=== PATIENT | male | born 1950 | race African-American/Black ===

== ENCOUNTER 2017-07-05 12:39 | Observation (INO) | payer OTHER ==
[~2017-07-05] VITALS: Ht 170.2 cm; Wt 120.5 kg
--- NOTE | ~2017-07-05 | HEMODYNAMI ---
PATIENT:LOUISE LEE MEDICAL RECORD: [id number] : 54 LOCATION:[facility].211 ADMISSION DATE: 07/05/17 Generatedon:07/07/201715:52 Patient name: LOUISE LEE Patient #: [id number] SSN: : Date of study: 07/07/2017 Page: Of Hemodynamic Procedure Report Patient Data Patient Demographics Procedure consent was obtained First Name: LOUISE Gender: Male Last Name: JESUS : 1950 Middle Initial: L Age: 66 year(s) Patient #: [id number] Race: Black Additional ID: [id number] Contact details [address]: [address] [place] [address] State: [place] City: [place] Zip code: [address] Admission Admission Data Admission Date: 07/05/2017 Admission Time: 15:52 Admit Source: Other Room #: D.2117 Procedure Procedure Types Cath Procedure Diagnostic Procedure LHC LHC w/Coronaries Procedure Description Procedure Date Procedure Date: 07/07/2017 Procedure Start Time: 15:28 Procedure End Time: 15:51 Procedure Staff Name Function Luis Rinaldi MD Performing Physician Abdirahman Medina RT Monitor Porter Roman RT Scrub Godwin Gaines RN Nurse Procedure Data Cath Procedure Fluoroscopy Diagnostic fluoroscopy Total fluoroscopy Time: 5 time: 5 min min Diagnostic fluoroscopy Total fluoroscopy dose: dose: 1028 mGy 1028 mGy Contrast Material Contrast Material Type Amount (ml) Isovue 300 81 Entry Location Entry Primary Successful Side Size Upsize Upsize Entry Closure Succes sful Closure Location (Fr) 1 (Fr) 2 (Fr) Remarks Device Remarks Femoral Right 5 Fr Exoseal artery Estimated blood loss: 10 ml Diagnostic catheters Device Type Used For End Catheter Placement MULTIPACK JL 4.0 5Fr Procedure catheter DIAGNOSTIC JL 5 5Fr Procedure catheter ([id number]) MULTIPACK 3DRC 5Fr Procedure catheter DIAGNOSTIC AR MOD 5Fr Procedure Catheter ([id number]) DIAGNOSTIC AR 2 MOD 5 Fr Procedure catheter ([id number]) MULTIPACK Pigtail 5 Fr Procedure catheter Procedure Complications No complications Procedure Medications Medication Administration Route Dosage 0.9% NaCl I.V. 100 ml/hr Oxygen etCO2 Nasal cannula 2 l/min Heparin Flush Bag added to field 2 bags (1000units/500ml NS) Lidocaine 2% added to field 20 Radial Cocktail added to field 1 syringe (Verapomil 2mg/Nitro 400mcg/Heparin 1500units) Versed I.V. 1 mg Fentanyl I.V. 50 mcg Fentanyl I.V. 50 mcg Versed I.V. 1 mg Hemodynamics Rest Heart Rate: 67 (bpm) Pressure Samples Time Site Value (mmHg) Purpose Heart Use Rate(bpm) 15:45 LV 131/1,13 Snapshot 73 15:45 AO 132/80(101) Pullback 68 15:45 LV 134/2,16 Pullback 68 Gradients Valve Time Site 1 Site 2 Mean SEP/DFP Peak To Heart Use (mmHg) (sec/min) Peak Rate (mmHg) (bpm) Aortic 15:45 LV AO 10 17 2 68 134/2,16 132/80(101) Calculations Valve P-P Mean Valve Index Valve Source Name Gradient Area Flow (cm2) Aortic 2 10 2 10 Snapshots Pre Cath Intra NCS Post Cath Vital Signs Time Heart Resp SPO2 etCO2 NIBP (mmHg) Rhythm Pain Sedation Rate (ipm) (%) (mmHg) Status Level (bpm) 15:22:50 68 19 95 27.7 142/98(117) NSR 0 (11) 10(A) , No pain 15:28:14 65 19 95 30 134/91(108) NSR 0 (11) 10(A) , No pain 15:32:54 72 18 92 32.3 139/93(114) NSR 0 (11) 10(A) , No pain 15:37:37 66 17 93 32.3 130/88(107) NSR 0 (11) 10(A) , No pain 15:42:17 71 18 93 32.3 129/85(110) NSR 0 (11) 9(A) , No pain 15:46:56 68 17 94 30.8 129/89(122) NSR 0 (11) 9(A) , No pain Medications Time Medication Route Dose Verified Delivered Reason Notes E ffectiveness by by 15:20:46 0.9% NaCl I.V. 100 Godwin Godwin Per ml/hr Eder Gaines physician RN RN 15:20:59 Oxygen etCO2 2 l/min Godwin Godwin Per Nasal Eder Gaines physician cannula RN RN 15:21:16 Heparin Flush added 2 bags Godwin Godwin used for Bag to Lorigan Lorigan procedure (1000units/500ml field RN RN NS) 15:21:30 Lidocaine 2% added 20ml Godwin Godwin for local to vial Lorigan Lorigan anesthetic field RN RN 15:21:50 Radial Cocktail added 1 Godwin Godwin used for (Verapomil to syringe Lorigan Lorigan procedure 2mg/Nitro field RN RN 400mcg/Heparin 1500units) 15:27:27 Versed I.V. 1 mg Godwin Godwin for Lorigan Lorigan sedation RN RN 15:27:38 Fentanyl I.V. 50 mcg Godwin Godwin for Lorigan Lorigan sedation RN RN 15:32:09 Fentanyl I.V. 50 mcg Godwin Godwin for Lorigan Lorigan sedation RN RN 15:32:17 Versed I.V. 1 mg Godwin Godwin for Lorigan Lorigan sedation RN lead section supervisor Log Time Note 14:50:20 Informed consent obtained and on chart 14:50:23 Admit Source: Other 14:50:41 Porter Roman RT(R) sent for patient. Start room use. 14:50:41 Time tracking: Regular hours (M-F 7:00 - 5:00) 14:50:45 Plan of Care:Hemodynamics will remain stable., Cardiac rhythm will remain stable., Comfort level will be maintained., Respiratory function will remain adequate., Patient/ family verbilizes understanding of procedure., Procedure tolerated without complication., Recovers from procedure without complications.. 14:51:00 H&P Date Dictated: 07/05/2017 Within 30 days and on chart.. 15:08:29 Patient received from PCU to CCL 1 Alert and oriented. Tansferred to table in Supine position. 15:08:30 Warm blankets applied, and nico hugger turned on for patient comfort. 15:08:31 Correct patient and procedure confirmed by team. 15:08:32 ECG and BP/O2 sat monitors applied to patient. 15:20:46 0.9% NaCl 100 ml/hr I.V. was administered by Godwin Gaines RN; Per physician; 15:20:59 Oxygen 2 l/min etCO2 Nasal cannula was administered by Godwin Gaines RN; Per physician; 15:21:16 Heparin Flush Bag (1000units/500ml NS) 2 bags added to field was administered by Godwin Gaines RN; used for procedure; 15::30 Lidocaine 2% 20ml vial added to field was administered by Godwin Gaines RN; for local anesthetic; 15:21:50 Radial Cocktail (Verapomil 2mg/Nitro 400mcg/Heparin 1500units) 1 syringe added to field was administered by Godwin Gaines RN; used for procedure; 15::58 Vital chart was started 15:22:20 Baseline sample Acquired. 15::24 Rhythm: sinus rhythm 15:: Full Disclosure recording started 15:: Pre-procedure instructions explained to patient. 15::27 Pre-op teaching completed and patient verbalized understanding. 15:22:29 Family in patients room. 15:22:32 Patient NPO since Midnight. 15:22:34 Is the patient allergic to Iodine/contrast media? No. 15:22:35 Is patient on blood thinner?No 15:22:37 Patient diabetic? No. 15:22:40 Previous problem with sedation/anesthesia? No ? 15:22:41 Snore? No 15:22:42 Sleep apnea? No 15:22:43 Deviated septum? No 15:22:44 Opens mouth fully? Yes 15:22:45 Sticks out tongue? Yes 15:22:51 Airway obstruction? No ? 15:22:53 Dentures? No ? 15:22:57 Pre procedure: right dorsailis pedis pulse 1+ Palpable, but thready & weak; easily obliterated 15:23:00 Modified Donal's test Ulnar < 7 seconds 15:23:02 Patient pain scale 0/10 ?. 15:23:05 IV patent on arrival in left forearm with 0.9% NaCl at [facility]. 15:23:07 Lab results completed and on chart. 15:23:11 Right Radial & Right Groin area was prepped with chlora-prep and draped in sterile fashion 15:23:14 Alarms reviewed by R. N. 15:23:14 Sharps counted by scrub and verified by R.N. 15:23:18 Use device set Radial Dx or PCI 15:23:21 Tegaderm 4 x 4 (1626W) opened to sterile field. 15:23:22 ACIST Manifold (24561) opened to sterile field. 15:23:23 ACIST Hand Control (24441) opened to sterile field. 15:23:24 ACIST Syringe (86177) opened to sterile field. 15:23:24 Medline Cath Pack ([id number]) opened to sterile field. 15:23:25 Bag Decanter (2002S) opened to sterile field. 15:23:25 DIAGNOSTIC WIRE .035 260cm J wire (184938) opened to sterile field. 15:23:26 MBrace Wrist Support ([id number]) opened to sterile field. 15:25: --------ALL STOP TIME OUT------ 15:25:02 Final Timeout: patient, procedure, and site verified with staff and physician. All members of the team are in agreement. 15:25:05 Right Radial & Right Groin site verified by team. 15:25:08 Physical assessment completed. ASA score P 2 - A patient with mild systemic disease as per Luis Rinaldi MD. 15:25:11 Sedation plan: IV Moderate Sedation Medication:Versed, Fentanyl 15:27:27 Versed 1 mg I.V. was administered by Godwin Gaines RN; for sedation; 15:27:38 Fentanyl 50 mcg I.V. was administered by Godwin Gaines RN; for sedation; 15:28:15 Procedure started. 15:28:20 Local anesthetic to right radial artery with Lidocaine 2% by Luis Rinaldi MD.INITIAL ACCESS ONLY 15:30:24 Unable to advance wire, moving to femoral approach. 15:30:32 Local anesthetic to right femoral artery with Lidocaine 2% by Luis Rinaldi MD.ADDITIONAL ACCESS 15:32:09 Fentanyl 50 mcg I.V. was administered by Godwin Gaines RN; for sedation; 15:32:17 Versed 1 mg I.V. was administered by Godwin Gaines RN; for sedation; 15:32:27 Use device set Multipack Set 15:32:30 DIAGNOSTIC Multipack 5Fr catheter set ([id number]) opened to sterile field. 15:32:48 SHEATH 5Fr Prelude ([id number]) opened to sterile field. 15:33:22 A 5 Fr sheath was inserted into the Right Femoral artery 15:33:55 A MULTIPACK JL 4.0 5Fr catheter was advanced over the wire and used for Procedure. 15:34:27 Catheter removed. unable to cannulate vessel. 15:35:22 A DIAGNOSTIC JL 5 5Fr catheter ([id number]) was advanced over the wire and used for Procedure. 15:36:46 LCA angiography performed. 15:37:06 Catheter exchanged over wire. 15:37:36 A MULTIPACK 3DRC 5Fr catheter was advanced over the wire and used for Procedure. 15:39:04 Catheter removed. unable to cannulate vessel. 15:39:35 A DIAGNOSTIC AR MOD 5Fr Catheter ([id number]) was advanced over the wire and used for Procedure. 15:41:53 Unable to visualize RCA well enough. Catheter removed over the wire. 15:42:13 A DIAGNOSTIC AR 2 MOD 5 Fr catheter ([id number]) was advanced over the wire and used for Procedure. 15:43:00 RCA angiography performed. 15:43:33 Catheter exchanged over wire. 15:43:56 A MULTIPACK Pigtail 5 Fr catheter was advanced over the wire and used for Procedure. 15:45:08 LV angiography performed. 15:45:10 LV gram done using MORAES 15:45:21 EF : 50 % 15:45:23 LV hemodynamics recorded. 15:45:47 Injector settings: Ml/sec: 10, Volume: 20, 15:45:52 Catheter removed. 15:46:04 EXOSEAL 5Fr (EX500) opened to sterile field. 15:46:15 Sheath removed intact; hemostasis achieved with Exoseal to the Right Femoral artery. 15:46:22 Procedure ended.(Physican Out) 15:48:07 Fluoroscopy time 05.00 minutes. 15:48:11 Flurop Dose total: 1028 15:48:11 Fluoroscopy dose: 1028 mGy 15:48:19 Contrast amount:Isovue 300 81ml. 15:48:20 Sharps counted by scrub and verified by R.N. 15:48:22 Insertion/operative site no bleeding no hematoma. 15:48:27 Post-op/insertion site Right Femoral artery dressed using a 4 x 4 and Tegaderm. 15:48:28 Post Procedure Pulses reassessed and unchanged 15:48:31 Post-procedure physical assessment completed. ASA score P 2 - A patient with mild systemic disease as per Luis Rinaldi MD. 15:48:34 Post procedure rhythm: unchanged. 15:48:38 Estimated blood loss: 10 ml 15:48:41 Post procedure instruction explained to patient.Patient verbalizes understanding. 15:48:42 Patient needs reinforcement of post procedure teaching. 15:48:48 Procedure and supply charges have been captured, reviewed, submitted and are correct. 15:48:51 Procedure Complication : No complications 15:50:07 Vital chart was stopped 15:50:08 See physician's report for complete and final results. 15:50:10 Report given to PCU. 15:50:21 Patient transfered to PCU with Bed. 15:51:52 Procedure ended. 15:51:52 Full Disclosure recording stopped 15:51:57 End room use (Document Last) Device Usage Item Name Manufacture Quantity Catalog Hospital Part Current Minima l Lot# / Number Charge Number Stock Stock Serial# Code Tegaderm 4 x 3M 1 1626W 932204 689220 029814 5 4 (1626W) ACIST Acist 1 71157 248401 889568 409858 5 Manifold Medical (49920) Systems Inc ACIST Hand Acist 1 69727 208222 190614 092674 5 Control Medical (64873) Systems Inc ACIST Acist 1 95095 855339 724236 994111 20 Syringe Medical (44445) Systems Inc Medline Cath Cardinal 1 [id number] 056137 16329 317801 5 Pack Health ([id number]) Bag Decanter Microtek 1 2001S 502794 21064 596422 5 (2001S) Medical Inc. DIAGNOSTIC St Mike 1 632044 153030 412543 455874 30 WIRE .035 260cm J wire (421864) MBrace Wrist Advanced 1 140-0250-00 999953 66901 632791 5 Support Vascular (129496190) Dynamics DIAGNOSTIC Cardinal 1 AZ7089 842396 47381 859901 30 Multipack Health 5Fr catheter set (LR3513) SHEATH 5Fr Merit 1 [id number] 755507 905909 114233 5 Prelude Medical ([id number]) MULTIPACK JL Cardinal 1 131866 5 4.0 5Fr Health catheter DIAGNOSTIC Cardinal 1 564694N 891392 936946 545018 5 JL 5 5Fr Health catheter (721379M) MULTIPACK Cardinal 1 623641 5 3DRC 5Fr Health catheter DIAGNOSTIC Cardinal 1 117897G 466375 572341 323079 15 AR MOD 5Fr Health Catheter (762652H) DIAGNOSTIC Cardinal 1 [id number] 555120 312618 428021 20 AR 2 MOD 5 Health Fr catheter (510047V) MULTIPACK Cardinal 1 773734 5 Pigtail 5 Fr Health catheter EXOSEAL 5Fr Cardinal 1 EX500 495014 306664 814202 10 (EX500) Health Signature Audit [employer] Stage Time Signature Unsigned Intra-Procedure 07/07/2017 Abdirahman Medina 3:52:16 PM RT(R) Signatures Monitor : Abdirahman Medina RT Signature : Date : Time : [address] [address]
[2017-07-05 13:21] LABS: BASOPHILS 0.6 % (0-2); HEMATOCRIT 47.9 % (42.0-54.0); HEMOGLOBIN 16.8 g/dL (13.5-17.5); LYMPHOCYTES 30.8 % (15-50); MCHC 35.1 g/dL (31.0-37.0); MCV 91.2 fL (80.0-100.0); MEAN PLATELET VOLUME 12.6 fL (7.4-10.4); NEUTROPHILS 54.6 % (40-80); PLATELET COUNT 128 10x3/uL (130-400); RBC 5.25 10x6/uL (4.20-6.10); RDW 13.6 % (11.5-14.5)
[2017-07-05 13:43] LABS: ALBUMIN 3.3 g/dL (3.4-5.0); ALKALINE PHOSPHATASE 71 U/L (46-116); ALT (SGPT) 43 U/L (10-68); BILIRUBIN - TOTAL 0.55 mg/dL (0.2-1.3); CALC OSMOLALITY 285 mosm/kg (275-300); CALCIUM 9.5 mg/dL (8.5-10.1); CARBON DIOXIDE 29.8 mmol/L (21.0-32.0); CHLORIDE - SERUM 99 mmol/L (98-107); CREATININE - SERUM 2.7 mg/dL (0.6-1.3); GLUCOSE 132 mg/dL (74-106); PROTEIN - SERUM 7.9 g/dL (6.4-8.2); SODIUM 138 mmol/L (136-145); UREA NITROGEN 35 mg/dL (7-18); eGFR NON AFRICAN AMERICAN 25 mL/min (90-120)
[2017-07-05 13:55] LABS: CKMB 3.9 U/L (0.0-3.6); CREATINE KINASE 612 UL (21-232); TROPONIN-I 0.035 ng/mL (0.000-0.060)
[2017-07-05 17:00] LABS: CKMB 3.7 U/L (0.0-3.6); CREATINE KINASE 580 UL (21-232)
[2017-07-05 17:20] VITALS: BP 138/94; BMI 42.4
[2017-07-05] MEDS ORDERED: ULORIC80 MG PO (17:38)
[2017-07-05] MEDS ORDERED: METOLAZONE5 MG PO (17:38)
[2017-07-05] MEDS ORDERED: K-DUR20 MEQ PO (17:38)
[2017-07-05] MEDS ORDERED: NORVASC10 MG PO (17:39)
[2017-07-05] MEDS ORDERED: ALDACTONE25 MG PO (17:39)
[2017-07-05] MEDS ORDERED: ISOPTO CARPINE15 M1 EACH EYE (17:40)
[2017-07-05] MEDS ORDERED: APRACLONIDINE 0.5% EACH EYE (17:41)
[2017-07-05] MEDS ORDERED: XALATAN 0.0052.5 ML EACH EYE (17:46)
[2017-07-05 20:18] VITALS: BP 124/79
[2017-07-05 23:09] LABS: CKMB 2.7 U/L (0.0-3.6); CREATINE KINASE 510 UL (21-232); TROPONIN-I 0.035 ng/mL (0.000-0.060)
[2017-07-06 00:39] VITALS: BP 116/72
[2017-07-06 01:41] LABS: CREATININE - URINE 106.2 mg/dL (30-125); PRO/CRE RATIO URINE 0.3 mg/g; PROTEIN - URINE 34.9 mg/dL (0.0-11.9)
[2017-07-06 02:08] LABS: APPEARANCE CLEAR (CLEAR); BILIRUBIN NEGATIVE (NEGATIVE); COLOR YELLOW (YELLOW); GLUCOSE NEGATIVE (NEGATIVE); KETONE NEGATIVE (NEGATIVE); NITRITE NEGATIVE (NEGATIVE); PROTEIN 2+ mg/dL (NEGATIVE); SPECIFIC GRAVITY 1.015 (1.005-1.020); UROBILINOGEN NORMAL (NORMAL)
[2017-07-06 02:09] LABS: BACTERIA FEW /hpf (NONE SEEN); EPITHELIAL CELLS 0-5 /hpf (0-5); RED CELLS - URINE 0-5 /hpf (0-5); WHITE CELLS - URINE 0-5 /hpf (0-5)
[2017-07-06 05:13] LABS: BASOPHILS 0.4 % (0-2); EOSINOPHILS 6.5 % (0-7); HEMOGLOBIN 15.5 g/dL (13.5-17.5); IMMATURE GRANULOCYTES 0.1 % (0-5); LYMPHOCYTES 29.2 % (15-50); MCH 32.1 pg (26.0-34.0); MCHC 35.2 g/dL (31.0-37.0); MCV 91.1 fL (80.0-100.0); MEAN PLATELET VOLUME 13.2 fL (7.4-10.4); MONOCYTES 7.1 % (2-11); NEUTROPHILS 56.7 % (40-80); PLATELET COUNT 122 10x3/uL (130-400); RBC 4.83 10x6/uL (4.20-6.10); RDW 13.8 % (11.5-14.5); WBC 7.2 10x3/uL (4.8-10.8)
[2017-07-06 05:43] LABS: CALC OSMOLALITY 283 mosm/kg (275-300); CALCIUM 8.9 mg/dL (8.5-10.1); CARBON DIOXIDE 29.3 mmol/L (21.0-32.0); CHLORIDE - SERUM 99 mmol/L (98-107); CKMB 1.9 U/L (0.0-3.6); CREATINE KINASE 465 UL (21-232); CREATININE - SERUM 2.5 mg/dL (0.6-1.3); GLUCOSE 135 mg/dL (74-106); MAGNESIUM - SERUM 1.3 mg/dL (1.8-2.4); PHOSPHOROUS 3.6 mg/dL (2.5-4.9); SODIUM 137 mmol/L (136-145); TROPONIN-I 0.042 ng/mL (0.000-0.060); UREA NITROGEN 36 mg/dL (7-18); URIC ACID 5.9 mg/dL (2.6-7.2); eGFR NON AFRICAN AMERICAN 28 mL/min (90-120)
[2017-07-06 05:53] LABS: POTASSIUM - SERUM 2.7 mmol/L (3.5-5.1)
[2017-07-06 06:11] VITALS: BP 115/84
[2017-07-06 08:17] VITALS: BP 122/78
[2017-07-06 11:43] VITALS: BP 140/96
[2017-07-06 14:29] VITALS: Ht 170.2 cm; Wt 120.5 kg
[2017-07-06 15:36] VITALS: BP 124/80
[2017-07-06 20:47] VITALS: BP 136/86
[2017-07-07] VITALS: BP 121/78
[2017-07-07 05:08] VITALS: BP 138/86
[2017-07-07 07:05] LABS: MAGNESIUM - SERUM 1.6 mg/dL (1.8-2.4)
[2017-07-07 07:07] LABS: PHOSPHOROUS 2.4 mg/dL (2.5-4.9)
[2017-07-07 08:21] VITALS: BP 131/81
[2017-07-07 09:03] LABS: ANION GAP 11.7 mmol/L (8-16); CALCIUM 9.2 mg/dL (8.5-10.1); CARBON DIOXIDE 27.3 mmol/L (21.0-32.0); CREATININE - SERUM 2.2 mg/dL (0.6-1.3)
[2017-07-07 11:37] VITALS: BP 130/91
== END 2017-07-07 18:56 | disposition home or self-care (01) ==
LOC: D.ER 12:39 → OBSVTIME 15:52 → D.M2 15:52 → D.EDHOLD 15:52 → D.M2 16:05 → D.SDCHOLD 07-07 16:00 → D.M2 07-07 16:06
PROVIDERS: Family Medicine; Internal Medicine Cardiovascular Disease; Internal Medicine Nephrology
DX: R07.89 Other chest pain (principal); I12.9 Hypertensive chronic kidney disease with stage 1 through stage 4 chronic kidney disease, or unspecified chronic kidney disease; N18.4 Chronic kidney disease, stage 4 (severe); E87.6 Hypokalemia; Z86.73 Personal history of transient ischemic attack (TIA), and cerebral infarction without residual deficits; E83.42 Hypomagnesemia

== ENCOUNTER 2017-12-18 14:02 | Emergency (ER) | payer OTHER ==
[~2017-12-18] VITALS: Ht 170.2 cm; Wt 75.0 kg
[~2017-12-18 14:02] MED LIST: ALDACTONE25 MG PO; APRACLONIDINE 0.5% EACH EYE; ISOPTO CARPINE15 M1 EACH EYE; K-DUR20 MEQ PO; METOLAZONE5 MG PO; NORVASC10 MG PO; ULORIC80 MG PO; XALATAN 0.0052.5 ML EACH EYE
[2017-12-18 14:14] VITALS: Ht 170.2 cm; Wt 75.0 kg
[2017-12-18 14:43] LABS: BASOPHILS 0.3 % (0-2); EOSINOPHILS 2.8 % (0-7); HEMATOCRIT 49.3 % (42.0-54.0); HEMOGLOBIN 17.1 g/dL (13.5-17.5); IMMATURE GRANULOCYTES 0.1 % (0-5); LYMPHOCYTES 31.2 % (15-50); MCH 32.5 pg (26.0-34.0); MCHC 34.7 g/dL (31.0-37.0); MCV 93.7 fL (80.0-100.0); MEAN PLATELET VOLUME 12.7 fL (7.4-10.4); MONOCYTES 7.7 % (2-11); NEUTROPHILS 57.9 % (40-80); PLATELET COUNT 137 10x3/uL (130-400); RBC 5.26 10x6/uL (4.20-6.10); RDW 13.9 % (11.5-14.5); WBC 7.3 10x3/uL (4.8-10.8)
[2017-12-18 14:53] LABS: APTT 24.4 SECONDS (22.8-39.4); INR 1.09 (0.85-1.17); PROTIME 13.7 SECONDS (11.6-15.0)
[2017-12-18 15:02] LABS: ALBUMIN 3.4 g/dL (3.4-5.0); ANION GAP 13.9 mmol/L (8-16); BILIRUBIN - TOTAL 0.66 mg/dL (0.2-1.3); CARBON DIOXIDE 29.7 mmol/L (21.0-32.0); CREATININE - SERUM 2.2 mg/dL (0.6-1.3); POTASSIUM - SERUM 3.6 mmol/L (3.5-5.1); PROTEIN - SERUM 8.1 g/dL (6.4-8.2)
[2017-12-18] MEDS ORDERED: FLAGYL500 MG PO (16:36)
[2017-12-18] MEDS ORDERED: CIPRO500 MG PO (16:36)
[2017-12-18] MEDS ORDERED: HYDROCODON-ACE1 EAC7 PO (16:36)
[2017-12-18 17:13] VITALS: BP 138/101
== END 2017-12-18 17:13 | disposition home or self-care (01) ==
LOC: D.ER 14:02
PROVIDERS: Emergency Medicine
DX: K57.32 Diverticulitis of large intestine without perforation or abscess without bleeding (principal); Z86.73 Personal history of transient ischemic attack (TIA), and cerebral infarction without residual deficits; H40.9 Unspecified glaucoma

== ENCOUNTER 2020-06-11 18:29 | Inpatient (IN) | payer OTHER ==
[2020-06-11] VITALS (8 sets, daily range): BP systolic 92–113; BP diastolic 58–83
[~2020-06-11] VITALS: Ht 170.2 cm; Wt 117.7 kg
[~2020-06-11 18:29] MED LIST changes: +CIPRO500 MG PO; +FLAGYL500 MG PO; +HYDROCODON-ACE1 EAC7 PO; -XALATAN 0.0052.5 ML EACH EYE; +XALATAN 0.0052.5 ML RIGHT EYE
[2020-06-11 19:10] LABS: BASOPHILS 0.2 % (0-2); EOSINOPHILS 1.3 % (0-7); HEMATOCRIT 49.4 % (42.0-54.0); HEMOGLOBIN 17.2 g/dL (13.5-17.5); IMMATURE GRANULOCYTES 0.2 % (0-5); LYMPHOCYTES 21.6 % (15-50); MCH 32.2 pg (26.0-34.0); MCHC 34.8 g/dL (31.0-37.0); MCV 92.5 fL (80.0-100.0); MEAN PLATELET VOLUME 13.3 fL (7.4-10.4); MONOCYTES 9.7 % (2-11); NEUTROPHIL ABS# 6.53 10x3/uL (1.78-5.38); RBC 5.34 10x6/uL (4.20-6.10); RDW 13.8 % (11.5-14.5); WBC 9.7 10x3/uL (4.8-10.8)
[2020-06-11 19:11] LABS: PLATELET COUNT 167 10x3/uL (130-400)
[2020-06-11 19:24] LABS: ANION GAP 12.9 mmol/L (8-16); CALCIUM 9.7 mg/dL (8.5-10.1); CARBON DIOXIDE 25.2 mmol/L (21.0-32.0); CREATININE - SERUM 2.6 mg/dL (0.6-1.3); POTASSIUM - SERUM 4.1 mmol/L (3.5-5.1)
[2020-06-11 19:34] LABS: ALBUMIN 3.1 g/dL (3.4-5.0); BILIRUBIN - TOTAL 0.88 mg/dL (0.2-1.3); PROTEIN - SERUM 7.1 g/dL (6.4-8.2); TROPONIN-I 0.034 ng/mL (0.000-0.060)
[2020-06-11 20:00] LABS: BILIRUBIN NEGATIVE (NEGATIVE); KETONE NEGATIVE (NEGATIVE); NITRITE NEGATIVE (NEGATIVE); UROBILINOGEN NORMAL mg/dL (< 2)
--- NOTE | 2020-06-12 01:00 | NUR ---
PT ARRIVED TO FLOOR VIA WHEELCHAIR. AMBULATED TO BED. AOX4, STATES NO PAIN AT THIS TIME. STATES THE PAIN COMES AND GOES AND IS CRAMPING IN THE EPIGASTRIC AREA. STATES HE HAS BEEN HAVING DAILY BOWEL MOVEMENTS NORMAL BUT HAVE BEEN DARK. INFORMED PT WE NEED STOOL SAMPLE, VERBALIZED UNDERSTANDING. PLACED SCDS ON BILAT AND EDUCATED IMPORTANCE AND EDUCATED ABOUT INCENTIVE SPIROMETER AND PT DEMONSTRATED CORRECT WAY TO USE. INFORMED PT HE IS NPO UNTIL SURGEON COMES TO SPEAK WITH HIM, VERBALIZED UNDERSTANDING. DENIES OTHER NEEDS AT THIS TIME. CL IN REACH, SRX2, BED LOWEST POSITION
[2020-06-12] MEDS ORDERED: DORZOLAMIDE-TI1 EACH RIGHT EYE (01:26)
[2020-06-12] MEDS ORDERED: LISINOPRIL5 MG PO (01:27)
[2020-06-12] MEDS ORDERED: ZYLOPRIM100 MG PO (01:27)
[2020-06-12 01:30] VITALS: BMI 40.6
[2020-06-12 01:49] VITALS: BP 100/75
[2020-06-12 06:30] VITALS: BP 80/57
[2020-06-12 06:54] LABS: APTT 29.9 SECONDS (22.8-39.4); INR 1.2 (0.85-1.17); PROTIME 14.1 SECONDS (11.6-15.0)
--- NOTE | 2020-06-12 07:00 | NUR ---
ASSESSMENT PER FLOW SHEET. PATIENT IS WITHOUT DISTRESS.HAS HAD HEPI CLENS BATH. PATIENT NPO FOR POSSIBLE PROCEDURE.CALL LIGHT IN REACH.
[2020-06-12 07:02] LABS: BASOPHILS 0.2 % (0-2); EOSINOPHILS 1.5 % (0-7); HEMATOCRIT 47.8 % (42.0-54.0); HEMOGLOBIN 16.4 g/dL (13.5-17.5); IMMATURE GRANULOCYTES 0.2 % (0-5); LYMPHOCYTE ABS# 1.97 10x3/uL (1.32-3.57); LYMPHOCYTES 21.3 % (15-50); MCH 31.9 pg (26.0-34.0); MCHC 34.3 g/dL (31.0-37.0); MEAN PLATELET VOLUME 13.8 fL (7.4-10.4); MONOCYTES 7.7 % (2-11); NEUTROPHIL ABS# 6.39 10x3/uL (1.78-5.38); NEUTROPHILS 69.1 % (40-80); PLATELET COUNT 151 10x3/uL (130-400); RBC 5.14 10x6/uL (4.20-6.10); RDW 13.9 % (11.5-14.5); WBC 9.3 10x3/uL (4.8-10.8)
[2020-06-12 07:23] LABS: BILIRUBIN - TOTAL 1.07 mg/dL (0.2-1.3); CALCIUM 9.9 mg/dL (8.5-10.1); CARBON DIOXIDE 24.5 mmol/L (21.0-32.0); CREATININE - SERUM 2.4 mg/dL (0.6-1.3); MAGNESIUM - SERUM 1.8 mg/dL (1.8-2.4); PHOSPHOROUS 3.3 mg/dL (2.5-4.9); PROTEIN - SERUM 6.9 g/dL (6.4-8.2)
[2020-06-12 07:25] LABS: ANION GAP 14.8 mmol/L (8-16); POTASSIUM - SERUM 3.3 mmol/L (3.5-5.1)
[2020-06-12 09:23] VITALS: BP 118/85
--- NOTE | 2020-06-12 10:57 | NUR ---
STOOL COLLECTED AND TAKEN TO LAB.
[2020-06-12 13:30] VITALS: BP 105/67
[2020-06-12 15:28] VITALS: Ht 170.2 cm; Wt 117.7 kg
[2020-06-12 17:14] VITALS: BP 95/68
[2020-06-12 20:00] VITALS: BP 89/55
[2020-06-13] VITALS: BP 122/77
--- NOTE | 2020-06-13 01:32 | NUR ---
I have reviewed this patient and I concur with the Shift Assessment completed by the Licensed Practical Nurse today this shift.
[2020-06-13 04:00] VITALS: BP 109/79
[2020-06-13 07:11] LABS: BASOPHILS 0.4 % (0-2); EOSINOPHILS 1.7 % (0-7); HEMOGLOBIN 15.3 g/dL (13.5-17.5); IMMATURE GRANULOCYTES 0.1 % (0-5); LYMPHOCYTES 22.7 % (15-50); MCH 31.6 pg (26.0-34.0); MEAN PLATELET VOLUME 13.5 fL (7.4-10.4); MONOCYTES 11.2 % (2-11); NEUTROPHIL ABS# 5.36 10x3/uL (1.78-5.38); NEUTROPHILS 63.9 % (40-80); PLATELET COUNT 142 10x3/uL (130-400); RBC 4.84 10x6/uL (4.20-6.10); WBC 8.4 10x3/uL (4.8-10.8)
--- NOTE | 2020-06-13 07:13 | NUR ---
RESTING,WITHOUT DISTRESS.NPO
[2020-06-13 07:44] LABS: ANION GAP 14.5 mmol/L (8-16); CALCIUM 9.1 mg/dL (8.5-10.1); CREATININE - SERUM 2.4 mg/dL (0.6-1.3); MAGNESIUM - SERUM 1.7 mg/dL (1.8-2.4); PHOSPHOROUS 3.3 mg/dL (2.5-4.9); POTASSIUM - SERUM 3.5 mmol/L (3.5-5.1)
[2020-06-13 09:10] VITALS: BP 117/90
[2020-06-13 13:37] VITALS: BP 140/91
[2020-06-13 16:28] LABS: CKMB 3.4 U/L (0.0-3.6); CREATINE KINASE 281 UL (21-232); TROPONIN-I 0.057 ng/mL (0.000-0.060)
[2020-06-13 17:03] VITALS: BP 108/82
[2020-06-13 20:00] VITALS: BP 95/77
--- NOTE | 2020-06-13 20:45 | NUR ---
Assumed care of pt after report/rounds. Pt A&OX4 and lying in bed with SO at bedside. This nurse did assessment and reviewed meds/orders. Called Tele to inquire of rate/rythm as pt tachy and irregular on auscultation. Pt in uncontrolled afib. Provider certified lactation educator notified with new orders recieved and implemented. Pt asymptomatic and resting well.
[2020-06-13 22:21] LABS: CKMB 3.2 U/L (0.0-3.6); CREATINE KINASE 274 UL (21-232)
[2020-06-13 22:24] LABS: TROPONIN-I 0.071 ng/mL (0.000-0.060)
[2020-06-14] VITALS: BP 108/76
--- NOTE | 2020-06-14 03:35 | NUR ---
Pt now in controlled afib with some PVC's. Dig has been given per order. ECG's done per order. Will continue to monitor.
[2020-06-14 04:00] VITALS: BP 124/87
[2020-06-14 06:07] LABS: BASOPHILS 0.9 % (0-2); EOSINOPHILS 3.2 % (0-7); HEMATOCRIT 41.4 % (42.0-54.0); HEMOGLOBIN 14.2 g/dL (13.5-17.5); IMMATURE GRANULOCYTES 0.2 % (0-5); LYMPHOCYTE ABS# 1.35 10x3/uL (1.32-3.57); MCH 32.2 pg (26.0-34.0); MCHC 34.3 g/dL (31.0-37.0); MCV 93.9 fL (80.0-100.0); MEAN PLATELET VOLUME 13.5 fL (7.4-10.4); MONOCYTES 11.6 % (2-11); NEUTROPHIL ABS# 3.59 10x3/uL (1.78-5.38); NEUTROPHILS 61.1 % (40-80); PLATELET COUNT 135 10x3/uL (130-400); RBC 4.41 10x6/uL (4.20-6.10); RDW 13.6 % (11.5-14.5)
[2020-06-14 06:09] LABS: WBC 5.9 10x3/uL (4.8-10.8)
[2020-06-14 06:21] LABS: CALC OSMOLALITY 282 mosm/kg (275-300); CALCIUM 8.7 mg/dL (8.5-10.1); CARBON DIOXIDE 26.9 mmol/L (21.0-32.0); CHLORIDE - SERUM 101 mmol/L (98-107); CKMB 2.5 U/L (0.0-3.6); CREATINE KINASE 219 UL (21-232); CREATININE - SERUM 2.1 mg/dL (0.6-1.3); GLUCOSE 100 mg/dL (74-106); MAGNESIUM - SERUM 1.7 mg/dL (1.8-2.4); PHOSPHOROUS 2.8 mg/dL (2.5-4.9); POTASSIUM - SERUM 3.1 mmol/L (3.5-5.1); SODIUM 138 mmol/L (136-145); UREA NITROGEN 32 mg/dL (7-18); eGFR NON AFRICAN AMERICAN 34 mL/min (90-120)
[2020-06-14 06:43] LABS: TROPONIN-I 0.069 ng/mL (0.000-0.060)
--- NOTE | 2020-06-14 07:38 | NUR ---
PT DID CONVERT TO 63 SR WITH OCCASIONAL PVC'S.
--- NOTE | 2020-06-14 08:30 | NUR ---
PT SITTING UP IN CHAIR. NO NEEDS AT THIS TIME. CL IN REACH. WCTM
[2020-06-14 08:37] VITALS: BP 139/88
[2020-06-14 12:52] VITALS: BP 145/70
--- NOTE | 2020-06-14 13:00 | NUR ---
PT IV THERAPY "CAME OUT" OF LEFT AC. NEW IV THERAPY RESTARTED IN LEFT FOREARM 20 G ONE ATTEMPT. TOLERATED WELL. CL IN REACH. JAMAL IN ROOM. WCTM
--- NOTE | 2020-06-14 15:39 | OP ---
PATIENT NAME: LOUISE LEE MEDICAL RECORD: [id number] :54 LOCATION:[id number] ADMISSION DATE:06/12/20 SURGEON: SOPHIA TORIBIO MD DATE OF OPERATION: 06/13/2020 PREOPERATIVE DIAGNOSES: 1. Melena 2. Epigastric abdominal pain. POSTOPERATIVE DIAGNOSES: 1. Melena 2. Epigastric abdominal pain. 3. LA grade III distal esophagitis. 4. Schatzki's ring. 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 6. Scarring within the stomach including an area of circumferential scarring with ulcerations that was proximal to the pylorus. 7. One very deep hard antral ulcer on the posterior aspect of the antrum. The rolled borders are suspicious for a malignancy. 8. Large hiatal hernia. PROCEDURE: Esophagogastroduodenoscopy with biopsies of ulcerated areas at the site of the stricture as well as biopsies of the very large posterior antral ulcer and distal esophageal biopsies at Schatzki's ring. SURGEON: Sophia Toribio MD HOGSHEAD PACKER: None. BLOOD LOSS: Minimal. ANESTHESIA: IV sedation. COMPLICATIONS: None. The risks, possible complications, and alternatives of the procedure were explained to the patient. He elects to proceed. The discussion specifically included, but was not limited to, bleeding requiring emergency reoperation, infection, endoscopic perforation. DESCRIPTION OF PROCEDURE: The patient was conveyed to endoscopy suite electively on 06/13/2020. IV sedation was induced by the anesthesia staff. A bite block was inserted. A gastroscope was inserted into the mouth. It was advanced easily into the hypopharynx. The esophagus was easily intubated as were the stomach and duodenum. Upon withdrawal, retroflexed and angulus views were obtained. I examined the stomach very carefully. There was an area that looked to be the pylorus with some surrounding ulceration, but it was actually a scarred area of the stomach proximal to the pylorus. I took images of this scarred area as well as of the pylorus. A retroflex view revealed a very large hiatal hernia and possibly a paraesophageal hernia. In addition to the cold endoscopic biopsies of the ulcerated areas at the area of scarring, additional biopsies were obtained and a very hard ulcer bed that contained exudate and this was the large antral ulcer, which was probably about a 4-5 cm ulcer. It did have some rolled borders, which appeared to be somewhat OPERATIVE REPORT [id number] LOUISE LEE Ju glandular and this was very concerning for a gastric malignancy. I then withdrew into the distal esophagus. Biopsies were obtained along the Schatzki's ring. The endoscope was then withdrawn under direct vision. I have discussed this case with Sandra Baxter APN. We are going to ensure the patient is on Protonix drip. Await biopsy results. Despite the low gallbladder ejection fraction on the PIPIDA scan, it is quite obvious now that the patient's epigastric pain is not due to gallbladder dysfunction, but is instead due to the severe ulcerative disease. TRANSINT:[id number] Voice Confirmation ID: [id number] DOCUMENT ID: [id number] SOPHIA TORIBIO MD at 1539 CC: [id number] DICTATION DATE: 06/13/20 171 BUGGY MAN: 06/13/20 1822 ADM IN [facility] [address] [place] [address]
[2020-06-14 17:31] VITALS: BP 125/62
--- NOTE | 2020-06-15 01:37 | NUR ---
Pt's HR is jumping between 30 and 56 bpm and has been doing so on and off t/o the night when pt falls asleep. This nurse did call o/c and discussed same with him, along with uncontrolled afib yesterday and treatment, pt status today and current labs. Dr. Stewart reviewed labs with this nurse and Pottassium given per protocal and after discussion with and K+ of 3.1. Pt remains asymptomatic and BP 113/56. All other VSS.
--- NOTE | 2020-06-15 05:28 | NUR ---
Pt has had no change to HR rythms on tele and also remains asymptomatic without change in mentation/function and VS otherwise stable. Denies pain/disomfort. In bed resting at this time.
[2020-06-15 05:44] LABS: BASOPHILS 0.5 % (0-2); EOSINOPHILS 3.8 % (0-7); HEMATOCRIT 37.2 % (42.0-54.0); HEMOGLOBIN 12.5 g/dL (13.5-17.5); IMMATURE GRANULOCYTES 0.2 % (0-5); LYMPHOCYTE ABS# 1.31 10x3/uL (1.32-3.57); MCH 31.3 pg (26.0-34.0); MCHC 33.6 g/dL (31.0-37.0); MCV 93.2 fL (80.0-100.0); MEAN PLATELET VOLUME 12.9 fL (7.4-10.4); NEUTROPHIL ABS# 4.24 10x3/uL (1.78-5.38); NEUTROPHILS 64.5 % (40-80); PLATELET COUNT 112 10x3/uL (130-400); RBC 3.99 10x6/uL (4.20-6.10); RDW 13.5 % (11.5-14.5); WBC 6.6 10x3/uL (4.8-10.8)
[2020-06-15 06:02] LABS: ANION GAP 11.6 mmol/L (8-16); CALCIUM 8.4 mg/dL (8.5-10.1); CARBON DIOXIDE 26.4 mmol/L (21.0-32.0); MAGNESIUM - SERUM 1.6 mg/dL (1.8-2.4); PHOSPHOROUS 2.6 mg/dL (2.5-4.9)
[2020-06-15 08:07] VITALS: BP 127/76
[2020-06-15 12:00] VITALS: BP 129/81
[2020-06-15] MEDS ORDERED: CARAFATE1 G PO (12:32)
[2020-06-15] MEDS ORDERED: PROTONIX40 MG PO (12:32)
[2020-06-15] MEDS ORDERED: HYDRALAZINE HCL10 MG PO (12:33)
--- NOTE | 2020-06-15 14:39 | NUR ---
IV DISCONTINUED AND VERBALIZED UNDERSTANDING OF DISCHARGE INSTRUCTIONS. STABLE AT TIME OF DISCHARGE.
--- NOTE | 2020-06-15 15:24 | EC ---
PATIENT:LOUISE LEE DATE OF SERVICE: 06/12/20 SEX: M MEDICAL RECORD: [id number] DATE OF : 54 LOCATION:[facility] AGE OF PATIENT: 69 ADMISSION DATE: 06/12/20 REFERRING PHYSICIAN: INTERPRETING PHYSICIAN: TAYLOR TATE MD ECHOCARDIOGRAM REPORT ECHO CHARGES 4 ECHO COMPLETE Date: 06/14/20 CLINICAL DIAGNOSIS: AFIB ECHOCARDIOGRAPHIC MEASUREMENTS (adult normal given) AC root (d.<3.7cm) 4.1 cm LV Septum d (<1.2 cm> 1.9 cm Valve Excursion 1.9 cm LV Septum (systole) 2.1 cm Left Atria (s.<4.0cm> 3.7 cm LVPW d(<1.2cm) 1.3 cm RV (d.<2.3cm) 2.9 cm LVPW (sytole) 1.8 cm LV diastole(<5.6CM) 5.6 cm MV E-F(>70mm/sec) cm LV systole 4.0 cm LVOT Diameter 1.9 cm MV exc.(>10mm) 1.6 cm Est.ejection fraction (50-75%) % DOPPLER: LVIT cm/sec A 51 cm/sec E 84 cm/sec LA cm/sec RVSP 27 mmHg LVOT 146 cm/sec AOP1/2T m/s Asc. Ao 146 cm/sec RVOT 76 cm/sec RA cm/sec PA 110 cm/sec AV Gradient Peak 8.5 mmHg AV Mean 5.1 mmHg AV Area 2.9 cm MV Gradient Peak 6.7 mmHg MV Mean 2.0 mmHg MV Area cm COMMENTS: Rope Making Machine Operator: [facility] Service Worker Helper: 2 Dr. Rinaldi TAPE# Pericardial Effusion N DATE OF SERVICE: CLINICAL INDICATION: Atrial fibrillation. INTERPRETATION: Normal left ventricular chamber size and contractile function with mild concentric left ventricular hypertrophy with an ejection fraction of 55%. FINDINGS: Left atrial chamber appears normal. Right atrial and right ventricular chamber size and function appears normal. Aortic valve appears ECHOCARDIOGRAM REPORT [id number] LOUISE LEE normal. Trace aortic regurgitation. Mitral valve appears normal. Mild mitral regurgitation. Tricuspid valve appears normal. Trace tricuspid regurgitation. Pulmonic valve appears normal. No pulmonary insufficiency. No pericardial effusion visualized. IMPRESSION: Normal left ventricular chamber size and contractile function with mild concentric left ventricular hypertrophy with an ejection fraction of 55%. TRANSINT:[id number] Voice Confirmation ID: [id number] DOCUMENT ID: [id number] TAYLOR TATE MD at 1524 CC: [id number] DICTATION DATE: 06/15/20 1134 GAS PUMPING STATION OPERATOR: 06/15/20 1216 DIS IN 06/15/20 [place] [id number] [place] [id number]
--- NOTE | 2020-06-15 19:22 | MORECARE ---
CASE MANAGEMENT DISCHARGE SUMMARY PATIENT: LOUISE LEE UNIT: [id number] ADM DATE: 06/12/20 AGE: 69 : 52 SEX: M ROOM/BED: D.2209 AUTHOR: KIM,DOC PHYSICIAN: REFERRING PHYSICIAN: GERRI LARIOS MD DATE OF SERVICE: 06/15/20 Case Management Discharge Planning Summary DCP REVIEW SUMMARY ANTICIPATED D/C DATE: 06/15/2020 EXPECTED LOS : 3 CASE STATUS: DCP Initiated INITIAL REVIEW: 06/12/2020 INITIAL REVIEWER: Simón Fraga FINAL DISCHARGE DISPOSITION: : FINAL REVIEWER: FINAL REVIEW DATE: DCP Focus Questions & Answers QUESTION: ANSWER : PATIENT: LOUISE LEE ENCOUNTER: [id number] MEDICAL RECORD#: [id number] ADMISSION DATE: 06/12/2020 DISCHARGE DATE: 06/15/2020 ATTENDING MD: BIPIN: AGE: 69 MARITAL STATUS: S DC PLAN ID: [id number] FACILITY: [facility] PRINTED ON: 06/15/20 19:22 CT All edits/amendments must be made on the electronic document DICTATION DATE: 06/15/201921 MOTOR DRIVER: WEI 06/15/201921 RPT#: [id number] DC DATE:06/15/20 STATUS: DIS IN [facility] [address] [place] [address] END OF REPORT
--- NOTE | 2020-06-15 19:32 | MORECARE ---
CASE MANAGEMENT DISCHARGE SUMMARY PATIENT: LOUISE LEE UNIT: [id number] ADM DATE: 06/12/20 AGE: 69 : 54 SEX: M ROOM/BED: D.2209 AUTHOR: KIM,DOC PHYSICIAN: REFERRING PHYSICIAN: GERRI LARIOS MD DATE OF SERVICE: 06/15/20 Case Management Discharge Planning Summary COMMENTS ENTERED DATE: 06/15/20 19:22 CT COMMENT TYPE: Discharge Planning REVIEWER: Simón Fraga CM met with patient to complete DC plan and to evaluate needs. Patient lives alone with strong support. Patient stated that his person to notify was his mother, Afia Stevens, . Patient stated that his home is safe and has electricity and running water. Patient stated that the home has 2 steps to enter and he is able to manage the steps without difficulty. Patient stated that he has no problems paying for medications and he fills his medications at [facility] [address] [facility]. Patient stated that his primary care physician is Dr. Ly Brice. At discharge, the patient plans to return home and feels this is a safe discharge. CM discussed availability of home health, rehab services, and medical equipment. Patient declined HHS, SNF, IPR, and DME. MIC refusal signed and placed in chart. Patient stated he has a shower chair and cane. Patient voiced no other needs at this time and is satisfied with DC plan. DC IMM delivered, explained, signed by the patient, and placed in chart. Signed form also left with the patient. CM will continue to follow and will assist as needed with dc plans/needs DCP REVIEW SUMMARY ANTICIPATED D/C DATE: 06/15/2020 EXPECTED LOS : 3 CASE STATUS: DCP Initiated INITIAL REVIEW: 06/12/2020 INITIAL REVIEWER: Simón Fraga FINAL DISCHARGE DISPOSITION: : FINAL REVIEWER: FINAL REVIEW DATE: DCP Focus Questions & Answers DCP Evaluation QUESTION: ANSWER Patient gives permission to discuss discharge plans with: (name, relationship and number) : motherAfia, Patient's ability to cope with chronic illness : d. No chronic illness Patient's current cognitive status: : *Oriented to person, place, situation, time and present Family / Caregiver's ability to cope with chronic illness: : a. Adequate (ability to meet patient's medical needs, ensures patient attends medical appts.) Patient and/or caregiver agree upon recommended discharge plan? : Yes Physical Status: : Independent with ADL's Family / Caregiver's ability to cope with chronic illness: : a. Adequate (ability to meet patient's medical needs, ensures patient attends medical appts.) Functional screen assessment: : Basic needs can adequately be met by self Does the patient have the ability to pay for or attain post discharge needs / services? : Yes Equipment needed for post hospitalization: : None Living Arrangements: : Home Alone with Support Is there a likelihood that the patient will require additional services to return to the preadmission environment? : No Baseline cognitive status: : *Oriented to person, place, situation, time and present Patient with capacity for self-care or can be cared for in same environment as prior to hospitalization? : Yes Physical environment modification needed / anticipated for discharge: : No Medication Management: : Patient states can afford medications Medication Management: : Patient states can read and understand medication labels Pharmacy name(s): : [facility] [address] [facility]. Does Patient have transportation to get home and to follow-up medical appointments when discharged from the hospital? : Yes Would patient like to participate in any Care Coordination programs (if applicable): : Not applicable Does the patient have electricity at home? : Yes Does the patient have running water in their house? : Yes Equipment in use: : Cane - Single Leg Equipment in use: : Shower Chair Mental health screen: : No mental health history DCP Re-evaluation QUESTION: ANSWER Would patient like to participate in any Care Coordination programs (if applicable): : Not applicable PATIENT: LOUISE LEE ENCOUNTER: [id number] MEDICAL RECORD#: [id number] ADMISSION DATE: 06/12/2020 DISCHARGE DATE: 06/15/2020 ATTENDING MD: BIPIN: [id number] AGE: 69 MARITAL STATUS: S DC PLAN ID: [id number] FACILITY: [facility] PRINTED ON: 06/15/20 19:32 CT All edits/amendments must be made on the electronic document DICTATION DATE: 06/15/201931 COMMUNICATIONS PROJECT LEAD: WEI 06/15/201931 RPT#: [id number] DC DATE:06/15/20 STATUS: DIS IN [facility] [address] [place] [address] END OF REPORT
== END 2020-06-15 14:40 | disposition home or self-care (01) | DRG 377 ==
LOC: D.ER 18:29 → D.MS 06-12 00:09
PROVIDERS: Family Medicine; Surgery; ADMIT Family Medicine; ATTEND Family Medicine
PROC: 0DB78ZX Excision of Stomach, Pylorus, Via Natural or Artificial Opening Endoscopic, Diagnostic (ICD-10-PCS; 2020-06-13)
PROC: 0DB38ZX Excision of Lower Esophagus, Via Natural or Artificial Opening Endoscopic, Diagnostic (ICD-10-PCS; principal; 2020-06-13 12:00)
DX: K25.4 Chronic or unspecified gastric ulcer with hemorrhage (principal); K20.91 Esophagitis, unspecified with bleeding; Z68.41 Body mass index [BMI] 40.0-44.9, adult; K81.1 Chronic cholecystitis; E78.5 Hyperlipidemia, unspecified; I12.9 Hypertensive chronic kidney disease with stage 1 through stage 4 chronic kidney disease, or unspecified chronic kidney disease; N18.9 Chronic kidney disease, unspecified; E66.01 Morbid (severe) obesity due to excess calories; K22.2 Esophageal obstruction; I48.91 Unspecified atrial fibrillation

== ENCOUNTER 2020-07-15 10:43 | Emergency (ER) | payer OTHER ==
[~2020-07-15] VITALS: Ht 170.2 cm; Wt 113.2 kg
[~2020-07-15 10:43] MED LIST changes: +CARAFATE1 G PO; +DORZOLAMIDE-TI1 EACH RIGHT EYE; +HYDRALAZINE HCL10 MG PO; +LISINOPRIL5 MG PO; +PROTONIX40 MG PO; +ZYLOPRIM100 MG PO
[2020-07-15 10:47] VITALS: BP 165/110; Ht 170.2 cm; Wt 113.2 kg
[2020-07-15] MEDS ORDERED: HYDROCODON-ACE1 EAC7 PO (12:21)
== END 2020-07-15 12:37 | disposition home or self-care (01) ==
LOC: D.ER 10:43
DX: S16.1XXA Strain of muscle, fascia and tendon at neck level, initial encounter (principal); E78.5 Hyperlipidemia, unspecified; I12.9 Hypertensive chronic kidney disease with stage 1 through stage 4 chronic kidney disease, or unspecified chronic kidney disease; N18.9 Chronic kidney disease, unspecified